=== PATIENT | male | born 1985 | race Hispanic/Latino ===

== ENCOUNTER 2021-11-12 18:00 | Outpatient (CLI) | payer BC | END 2021-11-12 18:01 | disposition home or self-care (01) | LOC: SLEEPLAB 18:00 | PROVIDERS: ATTEND Nurse Practitioner Family | DX: G47.9 Sleep disorder, unspecified (principal); G47.33 Obstructive sleep apnea (adult) (pediatric); I10 Essential (primary) hypertension; R06.83 Snoring; K21.9 Gastro-esophageal reflux disease without esophagitis; G47.00 Insomnia, unspecified; J30.2 Other seasonal allergic rhinitis; E66.9 Obesity, unspecified; Z68.43 Body mass index [BMI] 50.0-59.9, adult | CPT/HCPCS: 95800 ==

== ENCOUNTER 2021-11-28 08:35 | Outpatient (CLI) | payer BC ==
[2021-11-28] MEDS ORDERED: Magnevist 469MG/ML 20 ML VIAL ONE (14:26)
== END 2021-11-28 08:36 | disposition home or self-care (01) ==
LOC: TBSIIMAG 08:35
PROVIDERS: ATTEND Surgery
DX: G95.9 Disease of spinal cord, unspecified (principal); M51.26 Other intervertebral disc displacement, lumbar region; M51.27 Other intervertebral disc displacement, lumbosacral region; D17.79 Benign lipomatous neoplasm of other sites
CPT/HCPCS: 72158; A9579

== ENCOUNTER 2022-05-31 09:17 | Outpatient (CLI) | payer BC | END 2022-05-31 09:18 | disposition home or self-care (01) | LOC: SCSMRI 09:17 | PROVIDERS: ATTEND Surgery | DX: D17.79 Benign lipomatous neoplasm of other sites (principal); M51.26 Other intervertebral disc displacement, lumbar region; M51.27 Other intervertebral disc displacement, lumbosacral region | CPT/HCPCS: 72158; 82565 ==